=== PATIENT | female | born 1985 ===

== ENCOUNTER → 2023-05-12 11:37 | Outpatient (CLI) | payer OTHER | END | disposition home or self-care (01) | LOC: LAB 11:37 | PROVIDERS: ATTEND Internal Medicine Hematology & Oncology | DX: D50.8 Other iron deficiency anemias (principal); D68.8 Other specified coagulation defects; D69.1 Qualitative platelet defects; R97.0 Elevated carcinoembryonic antigen [CEA]; R97.8 Other abnormal tumor markers; D75.839 Thrombocytosis, unspecified; M32.9 Systemic lupus erythematosus, unspecified ==

== ENCOUNTER 2024-05-03 08:18 | Outpatient (CLI) | payer OTHER ==
[2024-05-03 09:38] LABS: HEMATOCRIT 37.7 % (36.0-45.00); HEMOGLOBIN 13.1 g/dL (12.0-15.00); MEAN CELL VOLUME 85.2 fL (80.00-100.00); MEAN CORPUSCULAR HEMOGLOBIN 29.6 pg (27.00-32.0); MEAN CORPUSCULAR HGB CONC 34.7 g/dl (32.0-36.0); PLATELET COUNT 414 K/uL (150-450); RED BLOOD COUNT 4.42 M/uL (4.00-6.00); RED CELL DISTRIBUTION WIDTH 13.9 % (11.5-14.5)
[2024-05-03 09:47] LABS: ERYTHROCYTE SEDIMENTATION RATE 5 mm/hr
[2024-05-03 10:19] LABS: ALBUMIN 3.9 gm/dL (3.4-5.0); ALKALINE PHOSPHATASE 45 U/L (50-136); ALT/SGPT 23 U/L (12-78); ANION GAP 8 (10.0-20.0); AST/SGOT 13 U/L (15-37); BILIRUBIN TOTAL 0.48 mg/dL (0.3-1.2); BLOOD UREA NITROGEN 14 mg/dL (7-18); BUN CREA RATIO 19 (7.0-25.0); C-REACTIVE PROTEIN < 0.29 MG/DL (0.00-0.29); CARBON DIOXIDE 28 mEq/L (21-32); CHLORIDE 108 mmol/L (98-107); CREATININE SERUM 0.75 mg/dL (0.55-1.02); GFR 85.58; GLOBULINA 3.7 G/DL (2.4-3.5); GLUCOSE FASTING 76 mg/dL (65-100); LDH 132 U/L (84-246); OSMOLALITY SERUM 279 MOSM/KG (275-295); POTASSIUM 4.26 mEq/L (3.5-5.1); SODIUM 140 mmol/L (136-145); TOTAL PROTEIN 7.6 gm/dL (6.4-8.2)
[2024-05-03 11:46] LABS: MANUAL PLATELET COUNT 656
[2024-05-03 11:47] LABS: PLATELET ESTIMATE NORMAL (NORMAL)
[2024-05-03 12:22] LABS: FOLIC ACID 16.65 ng/ml (4.78-20)
[2024-05-04 09:06] LABS: CA 15-3 29.1 U/mL (0.0-25.0); CA 19-9 < 2 U/mL (0-35); COMPLEMENT C3 113 mg/dL (82-167); COMPLEMENT C4 19 mg/dL (12-38)
[2024-05-04 11:07] LABS: CA 125 22.2 U/mL (0.0-38.1); DNA AB DOUBLE STRABDED 30 IU/mL (0-9)
[2024-05-07 07:07] LABS: CH 50 COMPLEMENT 52 U/mL (>41)
== END 2024-05-03 08:32 | disposition home or self-care (01) ==
LOC: LAB 08:18
PROVIDERS: ATTEND Internal Medicine Hematology & Oncology
DX: D50.8 Other iron deficiency anemias (principal); R79.9 Abnormal finding of blood chemistry, unspecified; I10 Essential (primary) hypertension; R74.02 Elevation of levels of lactic acid dehydrogenase [LDH]; K76.89 Other specified diseases of liver; R70.0 Elevated erythrocyte sedimentation rate; D75.839 Thrombocytosis, unspecified; M32.9 Systemic lupus erythematosus, unspecified; D51.3 Other dietary vitamin B12 deficiency anemia; D51.8 Other vitamin B12 deficiency anemias; C50.919 Malignant neoplasm of unspecified site of unspecified female breast; C56.9 Malignant neoplasm of unspecified ovary; R97.0 Elevated carcinoembryonic antigen [CEA]; R97.8 Other abnormal tumor markers; D64.9 Anemia, unspecified

== ENCOUNTER 2024-11-04 11:11 | Outpatient (CLI) | payer OTHER ==
[2024-11-04 12:44] LABS: HEMATOCRIT 38.5 % (36.0-45.00); HEMOGLOBIN 12.9 g/dL (12.0-15.00); MEAN CELL VOLUME 86.6 fL (80.00-100.00); MEAN CORPUSCULAR HEMOGLOBIN 28.9 pg (27.00-32.0); MEAN CORPUSCULAR HGB CONC 33.4 g/dl (32.0-36.0); PLATELET COUNT 416 K/uL (150-450); RED BLOOD COUNT 4.45 M/uL (4.00-6.00); RED CELL DISTRIBUTION WIDTH 13.6 % (11.5-14.5)
[2024-11-04 13:11] LABS: ERYTHROCYTE SEDIMENTATION RATE 9 mm/hr
[2024-11-04 13:16] LABS: ALBUMIN 3.8 gm/dL (3.4-5.0); ALKALINE PHOSPHATASE 52 U/L (50-136); ALT/SGPT 24 U/L (12-78); ANION GAP 8 (10.0-20.0); AST/SGOT 14 U/L (15-37); BILIRUBIN TOTAL 0.43 mg/dL (0.3-1.2); BLOOD UREA NITROGEN 13 mg/dL (7-18); BUN CREA RATIO 19 (7.0-25.0); CALCIUM 9.1 mg/dL (8.5-10.1); CARBON DIOXIDE 30 mEq/L (21-32); CHLORIDE 105 mmol/L (98-107); GFR 92.21; GLOBULINA 3.5 G/DL (2.4-3.5); GLUCOSE FASTING 80 mg/dL (65-100); LDH 145 U/L (84-246); OSMOLALITY SERUM 275 MOSM/KG (275-295); POTASSIUM 4.51 mEq/L (3.5-5.1); SODIUM 138 mmol/L (136-145); TOTAL PROTEIN 7.3 gm/dL (6.4-8.2)
[2024-11-04 13:26] LABS: C-REACTIVE PROTEIN < 0.29 MG/DL (0.00-0.29)
[2024-11-04 14:01] LABS: FOLIC ACID > 20.00 ng/ml (4.78-20)
[2024-11-06 08:24] LABS: MANUAL PLATELET COUNT 664
[2024-11-06 08:25] LABS: PLATELET ESTIMATE INCREASED (NORMAL)
[2024-11-06 09:08] LABS: COMPLEMENT C3 101 mg/dL (82-167); COMPLEMENT C4 19 mg/dL (12-38)
[2024-11-06 13:09] LABS: DNA AB DOUBLE STRABDED 30 IU/mL (0-9)
== END 2024-11-04 11:24 | disposition home or self-care (01) ==
LOC: LAB 11:11
PROVIDERS: ATTEND Internal Medicine Hematology & Oncology
DX: D64.9 Anemia, unspecified (principal); M32.9 Systemic lupus erythematosus, unspecified; E66.9 Obesity, unspecified; D50.8 Other iron deficiency anemias; R79.9 Abnormal finding of blood chemistry, unspecified; I10 Essential (primary) hypertension; R74.02 Elevation of levels of lactic acid dehydrogenase [LDH]; K76.89 Other specified diseases of liver; R70.0 Elevated erythrocyte sedimentation rate; D51.8 Other vitamin B12 deficiency anemias; D75.839 Thrombocytosis, unspecified; M32.8 Other forms of systemic lupus erythematosus; D51.3 Other dietary vitamin B12 deficiency anemia